=== PATIENT | male | born 1950 | race Caucasian/White ===

== ENCOUNTER 2017-05-17 12:18 | Day surgery (SDC) | payer OTHER, MEDICARE ==
[~2017-05-17] VITALS: Ht 175.3 cm; Wt 95.0 kg
[~2017-05-17 12:18] MED LIST: APRESOLINE50 MG PO; ASPIRIN81 M2 PO; CENTRUM ULTRA1 EACH PO; LISINOPRIL40 MG PO; LOPRESSOR50 MG PO; NORVASC10 MG PO; PRAVASTATIN SOD40 MG PO; VITAMIN D32000 UNI1 PO
[2017-05-17 12:37] VITALS: BP 142/77
[2017-05-17 18:40] VITALS: BP 153/79
[2017-05-17 19:40] VITALS: BP 163/87
== END 2017-05-17 19:48 | disposition home or self-care (01) ==
LOC: SDC 12:18
PROC: 00NY0ZZ Release Lumbar Spinal Cord, Open Approach (ICD-10-PCS; principal; 2017-05-17)
DX: M47.26 Other spondylosis with radiculopathy, lumbar region (principal); M51.16 Intervertebral disc disorders with radiculopathy, lumbar region; M48.06 Spinal stenosis, lumbar region; I10 Essential (primary) hypertension; G47.33 Obstructive sleep apnea (adult) (pediatric); Z79.82 Long term (current) use of aspirin; Z87.891 Personal history of nicotine dependence; I25.2 Old myocardial infarction; Z95.1 Presence of aortocoronary bypass graft
CPT/HCPCS: 72020; 76000; J0131; J0330; J0690; J1040; J1100; J1170; J2250; J2405; J2710; J3370